=== PATIENT | female | born 1955 | race Asian ===

== ENCOUNTER 2020-04-25 15:07 | Outpatient (CLI) | payer OTHER | END 2020-04-26 00:04 | disposition home or self-care (01) | LOC: LABW 15:07 | DX: M65.4 Radial styloid tenosynovitis [de Quervain] (principal); G56.01 Carpal tunnel syndrome, right upper limb; M19.031 Primary osteoarthritis, right wrist; M25.531 Pain in right wrist; M67.431 Ganglion, right wrist; Z79.899 Other long term (current) drug therapy | CPT/HCPCS: 36415; 82565; 84520 ==